=== PATIENT | male | born 1965 | race Caucasian/White ===

== ENCOUNTER 2021-05-30 11:09 | Emergency (ER) | payer OTHER ==
[2021-05-30] MEDS ORDERED: Lidocaine 1% (PF) 30 ML VIAL ONE (11:20)
[2021-05-30] MEDS ORDERED: Ondansetron ODT 4 MG TAB ONE (11:20)
[2021-05-30] MEDS ORDERED: Boostrix 0.5 ML (Tdap) VIAL ONE (11:20)
[2021-05-30] MEDS ORDERED: Bacitracin 1 PK ONE (11:58)
== END 2021-05-30 12:21 | disposition home or self-care (01) ==
LOC: ERS 11:09
DX: S61.011A Laceration without foreign body of right thumb without damage to nail, initial encounter (principal); Z23 Encounter for immunization; I10 Essential (primary) hypertension; M19.90 Unspecified osteoarthritis, unspecified site; W27.8XXA Contact with other nonpowered hand tool, initial encounter
CPT/HCPCS: 12001; 90471; 90715; J2001; Q0162

== ENCOUNTER 2024-09-11 10:14 | Outpatient (CLI) | payer OTHER | END 2024-09-11 10:15 | disposition home or self-care (01) | LOC: BICRAD 10:14 | PROVIDERS: ATTEND Chiropractor | DX: M19.042 Primary osteoarthritis, left hand (principal); M19.041 Primary osteoarthritis, right hand ==